=== PATIENT | female | born 1985 | race Two or more races ===

== ENCOUNTER 2019-05-28 22:20 | Inpatient (IN) | payer OTHER ==
[2019-05-28] MEDS ORDERED: RINGERS SOLUTION,LACTATED 1,000 ML IV PRN (22:46)
[2019-05-28] MEDS ORDERED: PENICILLIN G POTASSIUM 5,000,000 UNIT in DEXTROSE 5%-WATER 100 ML IV ONE (22:46)
[2019-05-28] MEDS ORDERED: PENICILLIN G-K 5 MILLION UNIT VIAL ONE (23:20)
[2019-05-28 23:22] LABS: APPEARANCE,URINE CLEAR; BILIRUBIN,URINE NEGATIVE (NEGATIVE); COLOR,URINE STRAW; GLUCOSE, URINE NEGATIVE (NEGATIVE); KETONES,URINE TRACE mg/dL (NEGATIVE); LEUKOCYTE ESTERASE,URINE NEGATIVE (NEGATIVE); NITRITE,URINE NEGATIVE (NEGATIVE); PROTEIN,URINE NEGATIVE (NEGATIVE); URINE SPECIFIC GRAVITY 1.004; UROBILINOGEN,URINE NEGATIVE mg/dL (<2.0)
[2019-05-28 23:22] LABS: ABSOLUTE EOSINOPHILS # (AUTO) 0.1 10^3/uL (0.0-0.6); ABSOLUTE LYMPHOCYTES (AUTO) 1.7 10^3/uL (0.5-4.7); ABSOLUTE MONOCYTES (AUTO) 0.4 10^3/uL (0.1-1.4); ABSOLUTE NEUT (AUTO) 4.5 10^3/uL (1.7-8.2); BASOPHILS % (AUTO) 0.6 % (0-2); EOSINOPHILS % (AUTO) 1.2 % (0-6); HEMATOCRIT 33.1 % (36.0-47.0); LYMPHOCYTES % (AUTO) 24.8 % (13-45); MEAN CORPUSCULAR HEMOGLOBIN 26.4 pg (27.0-33.4); MEAN CORPUSCULAR HGB CONC 33.2 g/dL (32.0-36.0); MEAN CORPUSCULAR VOLUME 79 fl (80-97); MONOCYTES % (AUTO) 6.1 % (3-13); PLATELET COUNT 246 10^3/uL (150-450); RED BLOOD COUNT 4.17 10^6/uL (3.72-5.28); RED CELL DISTRIBUTION WIDTH 26.1 % (11.5-14.0); SEGMENTED NEUTROPHILS % (AUTO) 67.3 % (42-78); TOTAL CELLS COUNTED % (AUTO) 100 %; WHITE BLOOD COUNT 6.7 10^3/uL (4.0-10.5)
[2019-05-28 23:47] LABS: URINE AMPHETAMINES SCREEN NEGATIVE; URINE BARBITURATES SCREEN NEGATIVE; URINE BENZODIAZEPINES SCREEN NEGATIVE; URINE COCAINE SCREEN NEGATIVE; URINE MARIJUANA (THC) SCREEN NEGATIVE; URINE METHADONE SCREEN NEGATIVE; URINE PHENCYCLIDINE SCREEN NEGATIVE
[2019-05-28 23:58] LABS: ANISOCYTOSIS 3+; OVALOCYTES 1+; PLATELET COMMENT ADEQUATE; POIKILOCYTOSIS 2+; TEAR DROP CELLS 1+; TOXIC GRANULATION SLIGHT
--- NOTE | 2019-05-29 00:53 | RADIOLOGY REPORT (SQ) ---
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 COMPARISON: None. TECHNIQUE: Grayscale, color Doppler, and spectral Doppler ultrasound images of the pelvis were obtained. FINDINGS: There is a single intrauterine gestation in vertex position. heart rate is 158 bpm. Placenta is posterior. AUBREY is 10.1 cm. Estimated weight is 3437 g which is 50th percentile. Estimated gestational age is 38 weeks 1 day. IMPRESSION: 38 weeks 1 day gestation.
[2019-05-29] MEDS ORDERED: LIDOCAINE 1% INJ-PF (10 MG/ML) 30 ML SDV ONE (01:39)
[2019-05-29] MEDS ORDERED: MISOPROSTOL 0.2 MG TABLET ONE (01:39)
[2019-05-29] MEDS ORDERED: OXYTOCIN/NORMAL SALINE 20 UNIT/1,000 ML RTUINJ ONE ×2 (01:39→17:08)
[2019-05-29] MEDS ORDERED: OXYTOCIN 10 UNIT/ML VIAL ONE ×2 (01:39→14:34)
[2019-05-29] MEDS ORDERED: PENICILLIN G-K 5 MILLION UNIT VIAL ONE ×2 (03:30→10:23)
--- NOTE | 2019-05-29 05:19 | Admission Physical ---
Datetime Report Generated by CPN: 05/29/2019 05:19 CURRENT ADMISSION Chief Complaint: Suspected Ruptured Membranes Indication for Induction: PROM Admit Impression : Term, Intrauterine ; No Active Labor; Ruptured Membranes; Admit Plan: Admit to Unit; Initiate Protocol ALLERGIES Medication Allergies: No Medication Allergies: No Known Allergies (05/29/2019) Latex: No Latex Allergies Food Allergies: denies Environmental Allergies: denies OBSTETRICAL HISTORY EDC: 06/01/2019 00:00 : 2 Para: 1 Term: 1 : 0 SAB: 0 IAB: 0 Livin Cesareans: 1 Gestational Diabetes: Yes Rh Sensitization: No Incompetent Cervix: No ALEA: No Infertility: No ART Treatment: No Uterine Anomaly: No IUGR: No Hx Previous C/S: Yes Macrosomia: No Hx Loss/Stillborn: No PIH: No Hx : No Placenta Previa/Abruption: No Depression/PP Depression: No PTL/PROM: No Post Hemorrhage: No Current Procedures: Ultrasound; NST Obstetrical History Comments: csection for breech g2-current, GDMA2 on glyburide SEE RECORDS Alcohol: No Marijuana : No Cocaine: No Other Illicit Drugs: No Cigarettes: Never Smoker. 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 Surgery: No Heart Disease: No Hosp/Surgery: Yes Autoimmune Disorder: No Anesthetic Complications: No Kidney Disease: No Abnormal Pap Smear: Yes Neuro/Epilepsy: No Psychiatric Disorders: No Other Medical Diseases: No Hepatitis/Liver Disease: No Significant Family History: No Varicosities/Phlebitis: No Trauma/Violence : No Thyroid Dysfunction: No Medical History Comments: csection x 1, GDM on glyburide, 2009 colpo, abnormal pap x 3 , tb positive skin test at age 13 did medications for 9 months but chest xray normal INFECTIOUS HISTORY Gonorrhea: No Genital Herpes: No Chlamydia: No Tuberculosis: Yes Syphilis: No Hepatitis: No HIV/AIDS Exposure: No Rash or Viral Illness: No HPV: No Infectious History Comments: positive skin test for TB but chest xray normal PHYSICAL EXAM General: Normal HEENT: Normal Neurologic: Normal Thyroid: Normal Heart: Normal Lungs: Normal Breast: Normal Back: Normal Abdomen: Normal Genitourinary Exam: Normal Extremities: Normal DTRs: Normal Pelvic Type: Adequate Vital Signs: Reviewed; Within Normal Limits VAGINAL EXAM Dilatation: 0 Effacement: 25 Station: -3 MEMBRANES Pooling: Positive Membranes: Ruptured Amniotic Fluid Color: Clear FETUS A EGA: 39.3 Monitoring: External US FHR- Baseline: 140 Variability: Moderate 6-25bpm Accelerations: 15X15 Decelerations: None FHR Category: Category I Estimated Weight (gm): 3437 Presentation: Vertex Admit Comment: EFW obtained due to concerns for LGA based on a 36 wk sono that estimated the baby at 8 lbs. I counseled the patient regarding her risks with since she has not had a vaginal before, and she did not come in with good cervical dilitation as well as concerns for possible LGA. When EFW was reassuring and pt did start to dilate some on her own, was reassured for at least a trial of labor. Emphasized low threshold for repeat c/section if labor did not progress in reassuring fashion PLANS FOR LABOR AND DELIVERY Labor and Delivery: None Pain Management: Medications; Epidural Feeding Preference: Breast Benefit of Breast Feed Discussed: Yes Circumcision: Yes INFORMED CONSENT Signature: with User ID: [email or web address]
[2019-05-29] MEDS ORDERED: EPHEDRINE SULFATE INJ 50 MG/1 ML AMPULE ONE ×2 (09:34→14:35)
[2019-05-29] MEDS ORDERED: BUPIVACAINE HCL 0.25 % INJ/PF (2.5 MG/1 ML) 30 ML VIAL ONE (09:35)
[2019-05-29] MEDS ORDERED: FENTANYL/BUPIVACAINE/NS/PF 300 MCG/150 ML RTUINJ EPI ONE (09:35)
[2019-05-29] MEDS ORDERED: CEFAZOLIN INJ 1 GM VIAL ONE (14:28)
[2019-05-29] MEDS ORDERED: CITRIC ACID/SODIUM CITRATE ORAL SOLN 15 ML UDCUP ONE (14:28)
[2019-05-29] MEDS ORDERED: DIPH/PERTUSS(ACELL)/TETANUS VAC/PF 0.5 ML SYR (>=10YO) IM PRN (14:33)
[2019-05-29] MEDS ORDERED: ACETAMINOPHEN 1,000 MG/100 ML RTUPB IV PRN (14:33)
[2019-05-29] MEDS ORDERED: ACETAMINOPHEN 325 MG TABLET PO PRN (14:33)
[2019-05-29] MEDS ORDERED: RINGERS SOLUTION,LACTATED 1,000 ML IV PRN (14:33)
[2019-05-29] MEDS ORDERED: HYDROMORPHONE HCL INJ/PF 2 MG/ML AMPULE IV PRN (14:33)
[2019-05-29] MEDS ORDERED: PROMETHAZINE HCL INJ 25 MG/1 ML VIAL IV PRN ×3 (14:33→15:11)
[2019-05-29] MEDS ORDERED: OXYCODONE-ACETAMINOPHEN 5-325 MG TABLET PO PRN ×3 (14:33→15:11)
[2019-05-29] MEDS ORDERED: OXYTOCIN/NORMAL SALINE 20 UNIT/1,000 ML RTUINJ IV PRN (14:33)
[2019-05-29] MEDS ORDERED: SIMETHICONE 80 MG TAB.CHEW PO PRN (14:33)
[2019-05-29] MEDS ORDERED: MEASLES,MUMPS&RUBELLA VACC/PF 0.5 ML VIAL SUBCUT PRN (14:33)
[2019-05-29] MEDS ORDERED: KETOROLAC TROMETHAMINE INJ/PF 30 MG/1 ML SDV ONE (14:34)
[2019-05-29] MEDS ORDERED: ACETAMINOPHEN 1,000 MG/100 ML RTUPB IV ONE (14:35)
[2019-05-29] MEDS ORDERED: MIDAZOLAM 2 MG/2 ML INJ ONE (14:35)
[2019-05-29] MEDS ORDERED: FENTANYL CITRATE INJ/PF 100 MCG/2 ML AMPUL ONE (14:35)
[2019-05-29] MEDS ORDERED: ONDANSETRON HCL INJ/PF 4 MG/2 ML SDV ONE (14:35)
[2019-05-29] MEDS ORDERED: METHYLERGONOVINE MALEATE INJ/PF 0.2 MG/1 ML AMPULE ONE (14:35)
[2019-05-29] MEDS ORDERED: LIDOCAINE 2% INJ-PF (20 MG/ML) 10 ML AMPUL ONE (14:36)
[2019-05-29] MEDS ORDERED: MORPHINE SULFATE 10 MG/ML INJ IV PRN (15:11)
[2019-05-29] MEDS ORDERED: ONDANSETRON HCL INJ/PF 4 MG/2 ML SDV IV PRN (15:11)
[2019-05-29] MEDS ORDERED: FENTANYL CITRATE INJ/PF 100 MCG/2 ML AMPUL IV PRN ×3 (15:11)
[2019-05-29] MEDS ORDERED: DIPHENHYDRAMINE HCL 50 MG/ML VIAL IV PRN (15:11)
--- NOTE | 2019-05-29 15:57 | Operative Report ---
Operative Report DATE OF SURGERY: 05/29/19 PREOPERATIVE DIAGNOSIS: Repeat along with heavy vaginal bleeding POSTOPERATIVE DIAGNOSIS: Same OPERATION: Repeat via low transverse uterine incision SURGEON: MARILYNN DANGELO ANESTHESIA: Epidural TISSUE REMOVED OR ALTERED: Placenta COMPLICATIONS: head delivering through peritoneal window at low uterine segment ESTIMATED BLOOD LOSS: 400 cc INTRAOPERATIVE FINDINGS: Viable . Normal tubes and ovaries PROCEDURE: Patient was taken to the OR and placed in supine position after her spinal anesthesia. She is prepared and draped in sterile fashion. Nolen was placed for drainage of the bladder. Low transverse incision was made and carried down the level of the fascia. The fascial incision was made with knife and extended bilaterally with curved Zeng scissors. The fascia was off the rectus muscles using sharp and blunt dissection. The rectus muscles are in the midline. The peritoneum was entered without incident. Bladder blade was placed in uterine segment was identified. The head was delivering through a peritoneal window in the low uterine segment. A low transverse incision was made creating a bladder flap. Bladder blade was placed low transverse uterine incision extended with fingertips. The baby was delivered with some fundal pressure. Mouth and nose were suctioned free. The cord is doubly clamped and cut. Baby is passed off to the residential program worker in attendance. The placenta was manually extracted with trailing membranes. The uterus was externalized wrapped in a moist lap sponge. Uterine contents wiped free. Uterus was closed with a running locking layer of 0 chromic suture using the second layer to imbricate the first completing a double layer closure of the uterus. The serosa was closed with a running 2-0 chromic stitch. The pelvis was irrigated and clemente ctioned free of fluid the uterus was replaced in the abdomen. The abdominal wall peritoneum was closed with running 2-0 chromic stitch. Fascia was closed with a running 0 Vicryl in 2 segments. Peter's layer was brought together with 0 plain gut stitch and the skin was closed with running subcuticular 4-0 undyed Vicryl stitch. The wound was dressed mother and baby did well.
[2019-05-29] MEDS ORDERED: MEPERIDINE HCL/PF INJ 25 MG/1 ML DISP.SYRIN ONE (16:08)
[2019-05-29] MEDS: MEPERIDINE HCL/PF INJ 25 MG/1 ML DISP.SYRIN IV PRN ×2 (16:13→17:42)
[2019-05-29] MEDS ORDERED: HYDROMORPHONE HCL INJ/PF 2 MG/ML AMPULE ONE (17:21)
--- NOTE | 2019-05-29 18:17 | Delivery Summary ---
Del Sum A-C Datetime Report Generated by CPN: 05/29/2019 18:16 DELIVERY PERSONNEL DELIVERY PERSONNEL: [id number] Delivery Doctor:: Linda Rey MD Anesthesiologist:: Alexis Locke MD APPRISE COUNSELOR:: Megan Lindsay CRNA Labor and Delivery Nurse:: Hazel Glez RN Wincher:: Edita Cervantes RN Artillery Maintenance Supervisor:: Dr. Brent Batista Nursery Nurse:: Nimo Emery RN Television Station Manager/MILKING SYSTEM INSTALLER: Miya Hoang CST Television Station Manager/MILKING SYSTEM INSTALLER: Beatriz Saldivar DIGITAL SOLUTIONS ARCHITECT MATERNAL INFORMATION Delivery Anesthesia: Spinal Medications After Delivery: Pitocin Bolus-Please Comment Meds After Delivery Comment: Pitocin 20 units IV bolus Delivery QBL: 630 Maternal Complications: None LABOR SUMMARY EDC: 06/01/2019 00:00 No. Babies in Womb: 1 Attempted: Yes Labor Anesthesia: Epidural LABOR INFORMATION Reason for Induction: Not Applicable Onset of Labor: 05/29/2019 07:30 Oxytocin: Augmentation Group B Beta Strep: positive Antibiotics # of Doses: 3 Antibiotics Time of Last Dose: 12:00 Name of Antibiotic Given: Penicillin G Steroids Given: None Reason Steroids Not Administered: Not Applicable MEMBRANES Membranes Rupture Method: Spontaneous Rupture of Membranes: 05/28/2019 21:30 Length of Rupture (hr): 17.73 Amniotic Fluid Color: Clear Amniotic Fluid Amount: Moderate Amniotic Fluid Odor: Normal STAGES OF LABOR Stage 3 hr: 0 Stage 3 min: 1 Total Time in Labor hr: 7 Total Time in Labor min: 45 VAGINAL DELIVERY Sponge Count Correct: N/A CSECTION DELIVERY Primary Indication: Secondary Arrest of Dilatation CSection Urgency: Non-Scheduled CSection Incidence: Repeat Labor: Labor Elective: Failed CSection Incision: Lower Uterine Transverse BABY A INFORMATION Infant Delivery Date/Time: 05/29/2019 15:14 Method of Delivery: Born in Route : No : Failed Forceps: N/A Vacuum Extraction: N/A Shoulder Dystocia : No PRESENTATION/POSITION BABY A Presentation: Cephalic Cephalic Presentation: Vertex Vertex Position: Left Occipital Anterior Breech Presentation: N/A PLACENTA INFORMATION BABY A Placenta Delivery Time : 05/29/2019 15:15 Placenta Method of Delivery: Manual Removal Placenta Status: Delivered SCORES BABY A Heart Rate 1 min: >100 bpm Resp Effort 1 min: Good Cry Reflex Irritability 1 min: Cough or Sneeze or Pulls Away Muscle Tone 1 min: Active Motion Color 1 min: Body Babbitt, Extremities Blue Resuscitation Effort 1 min: Tactile Stimulation SCORE 1 MIN: 9 Heart Rate 5 min: >100 bpm Resp Effort 5 min: Good Cry Reflex Irritability 5 min: Cough or Sneeze or Pulls Away Muscle Tone 5 min: Active Motion Color 5 min: Body Babbitt, Extremities Blue Resuscitation Effort 5 min: Tactile Stimulation SCORE 5 MIN: 9 INFORMATION BABY A Gestational Age at Delivery: 39.4 Gestational Status: Full Term- 39- 40.6 Weeks Outcome : Liveborn Condition : Stable Sex: Male IDENTIFICATION BABY A Infant Verification Date/Time: 05/29/2019 15:22 ID Band Number: [id number] Mother's Name Verified: Yes Infant RN Verifying Infant: Dilma Glez RN Additional Verifying Personnel: Shlomo CervantesEDILSON WEIGHT/LENGTH BABY A Birthweight (gm): 3410 Weight (lb): 7 Weight (oz): 8 Length (in): 21.00 Infant Length (cm): 53.34 CORD INFORMATION BABY A No. Cord Vessels: 3 Nuchal Cord : N/A Cord Blood Taken: Yes-For Storage (Mom's Blood type +) Infant Suction: None ASSESSMENT BABY A Complications: Multiple Late Decels Physical Findings at Delivery: Caput Succedaneum Infant Respirations: Appears Normal Skin to Skin: Yes Artillery Maintenance Supervisor/ALS Called : Yes Care By: Andrew Emery RN Transferred To: Nursery BABY B INFORMATION : N/A
[2019-05-29] MEDS: OXYCODONE-ACETAMINOPHEN 5-325 MG TABLET PO PRN (20:10)
[2019-05-29] MEDS: KETOROLAC TROMETHAMINE INJ/PF 30 MG/1 ML SDV IV SCH ×2 (20:58→21:46)
[2019-05-29] MEDS: DOCUSATE SODIUM 100 MG CAPSULE PO SCH (20:59)
[2019-05-29] MEDS: PENICILLIN G POTASSIUM 2,500,000 UNIT in DEXTROSE 5%-WATER 50 ML IV SCH (21:00)
[2019-05-30] MEDS: OXYCODONE-ACETAMINOPHEN 5-325 MG TABLET PO PRN (02:51)
[2019-05-30] MEDS: KETOROLAC TROMETHAMINE INJ/PF 30 MG/1 ML SDV IV SCH (05:42)
[2019-05-30 06:45] LABS: HEMATOCRIT 27.9 % (36.0-47.0); HEMOGLOBIN 9.3 g/dL (12.0-15.5); MEAN CORPUSCULAR HGB CONC 33.3 g/dL (32.0-36.0); MEAN CORPUSCULAR VOLUME 81 fl (80-97); PLATELET COUNT 211 10^3/uL (150-450); RED BLOOD COUNT 3.45 10^6/uL (3.72-5.28); RED CELL DISTRIBUTION WIDTH 26.8 % (11.5-14.0)
[2019-05-30 07:08] LABS: HEPATITS B SURFACE ANTIGEN Negative (Negative)
[2019-05-30] MEDS: DOCUSATE SODIUM 100 MG CAPSULE PO SCH ×2 (09:35→18:06)
[2019-05-30] MEDS ORDERED: PRENATAL VITAMIN W DHA CAPSULE PO SCH (10:00)
[2019-05-30] MEDS: IBUPROFEN 800 MG TABLET PO SCH ×2 (11:35→18:05)
--- NOTE | 2019-05-30 12:59 | PDOC PROGRESS REPORT ---
Subjective-OB Progress Note for:: 05/30/19 Subjective: reports bleeding slowing, pain controlled with current meds, denies needs, + passing gas Physical Exam (OB) Vital Signs: Temp Pulse Resp BP Pulse Ox 98.4 F 90 16 99/57 L 99 05/30/19 11:53 05/30/19 11:53 05/30/19 11:53 05/30/19 11:53 05/30/19 11:53 Intake & Output 05/29/19 05/30/19 05/31/19 06:59 06:59 06:59 Intake Total 150 Output Total 2400 Balance -2250 Weight 75.45 kg - Dressing Removed: No Incision: Dressing, Well Approximated Closure Type: op site - Abdomen Description: Tender, Soft, Round Hernia Present: No Fundal Description: Firm, Midline Fundal Height: u/u - u/2 - Abdominal Distension: No distension - Extremities Lower extremities: Jelly's sign - neg Calf: Nontender Objective-Diagnostic Laboratory: 05/30/19 06:08 05/30/19 06:08 WBC 8.0 RBC 3.45 L Hgb 9.3 L Hct 27.9 L MCV 81 MCH 27.0 MCHC 33.3 RDW 26.8 H Plt Count 211 Assessment and Plan(PN) - Time Spent with Patient Time with patient: Less than 15 minutes - Disposition Anticipated Discharge: Home Within: within 48 hours
--- NOTE | 2019-05-30 20:23 | PDOC DISCHARGE SUMMARY ---
Impression - Admit/DC Date/PCP Admission Date/Primary Care Provider: 05/28/19 22:46 Discharge Date: 05/30/19 - Discharge Diagnosis (1) Encounter for trial of labor Is this a current diagnosis for this admission?: Yes (2) History of delivery Is this a current diagnosis for this admission?: Yes (3) PROM (premature rupture of membranes) Is this a current diagnosis for this admission?: Yes - Additional Information Resuscitation Status: Full Code Discharge Diet: As Tolerated Discharge Activity: No Lifting Over 10 Pounds, Pelvic Rest, No tub bath Home Medications: Ferrous Sulfate [Iron] 1 tab PO DAILY 05/29/19 Glyburide [Diabeta 5 mg Tablet] 1 tab PO HSP 05/29/19 Vitamin [-U Multiple Vitamin Capsule] 1 tab PO DAILY 05/29/19 History of Present Illiness History of Present Illness: HOLLY HERNÁNDEZ is a 34 year old presented to [facility] for a scheduled trial of labor. Her induction resulted in a failed vaginal after delivery and she underwent a repeat section Hospital Course Hospital Course: Hospital course was essentially uneventful by postop day #1, the patient was ambulating voiding without difficulty. Patient stated that her lochia was decreasing. Patient denied chest pain, shortness of breath, fever/chills and nausea/vomiting. She requested to be discharged home. She stated that she went home on postop day 1 after her previous section. Physical Exam - Physical Exam Vital Signs: Temp Pulse Resp BP Pulse Ox 98.1 F 92 18 116/57 L 100 05/30/19 15:01 05/30/19 15:01 05/30/19 15:01 05/30/19 15:01 05/30/19 15:01 Intake & Output 05/29/19 05/30/19 05/31/19 06:59 06:59 06:59 Intake Total 150 Output Total 2400 Balance -2250 Weight 75.45 kg General appearance: PRESENT: no acute distress Respiratory exam: PRESENT: clear to auscultation callie Cardiovascular exam: PRESENT: RRR GI/Abdominal exam: PRESENT: normal bowel sounds, soft Extremities exam: ABSENT: calf tenderness, clubbing, full ROM, joint swelling, pedal edema, tenderness, +1 edema, +2 edema, other Results Laboratory Results: WBC 8.0 10^3/uL (4.0-10.5) 05/30/19 06:08 RBC 3.45 10^6/uL (3.72-5.28) L 05/30/19 06:08 Hgb 9.3 g/dL (12.0-15.5) L 05/30/19 06:08 Hct 27.9 % (36.0-47.0) L 05/30/19 06:08 MCV 81 fl (80-97) 05/30/19 06:08 MCH 27.0 pg (27.0-33.4) 05/30/19 06:08 MCHC 33.3 g/dL (32.0-36.0) 05/30/19 06:08 RDW 26.8 % (11.5-14.0) H 05/30/19 06:08 Plt Count 211 10^3/uL (150-450) 05/30/19 06:08 Lymph % (Auto) 24.8 % (13-45) 05/28/19 23:08 Sawyer % (Auto) 6.1 % (3-13) 05/28/19 23:08 Eos % (Auto) 1.2 % (0-6) 05/28/19 23:08 Baso % (Auto) 0.6 % (0-2) 05/28/19 23:08 Absolute Neuts (auto) 4.5 10^3/uL (1.7-8.2) 05/28/19 23:08 Absolute Lymphs (auto) 1.7 10^3/uL (0.5-4.7) 05/28/19 23:08 Absolute Monos (auto) 0.4 10^3/uL (0.1-1.4) 05/28/19 23:08 Absolute Eos (auto) 0.1 10^3/uL (0.0-0.6) 05/28/19 23:08 Absolute Basos (auto) 0.0 10^3/uL (0.0-0.2) 05/28/19 23:08 Seg Neutrophils % 67.3 % (42-78) 05/28/19 23:08 Toxic Granulation SLIGHT 05/28/19 23:08 Platelet Comment ADEQUATE 05/28/19 23:08 Poikilocytosis 2+ 05/28/19 23:08 Anisocytosis 3+ 05/28/19 23:08 Microcytosis SLIGHT 05/28/19 23:08 Tear Drop Cells 1+ 05/28/19 23:08 Ovalocytes 1+ 05/28/19 23:08 POC Glucose 99 mg/dL (70-110) 05/29/19 01:01 Urine Color STRAW 05/28/19 22:27 Urine Appearance CLEAR 05/28/19 22:27 Urine pH 7.0 (5.0-9.0) 05/28/19 22:27 Ur Specific Valier 1.004 05/28/19 22:27 Urine Protein NEGATIVE mg/dL (NEGATIVE) 05/28/19 22:27 Urine Glucose (UA) NEGATIVE mg/dL (NEGATIVE) 05/28/19 22:27 Urine Ketones TRACE mg/dL (NEGATIVE) H 05/28/19 22:27 Urine Blood MODERATE (NEGATIVE) H 05/28/19 22:27 Urine Nitrite NEGATIVE (NEGATIVE) 05/28/19 22:27 Urine Bilirubin NEGATIVE (NEGATIVE) 05/28/19 22:27 Urine Urobilinogen NEGATIVE mg/dL (<2.0) 05/28/19 22:27 Ur Leukocyte Esterase NEGATIVE (NEGATIVE) 05/28/19 22:27 Urine Ascorbic Acid NEGATIVE (NEGATIVE) 05/28/19 22:27 Urine Opiates Screen NEGATIVE 05/28/19 22:27 Urine Methadone Screen NEGATIVE 05/28/19 22:27 Ur Barbiturates Screen NEGATIVE 05/28/19 22:27 Ur Phencyclidine Scrn NEGATIVE 05/28/19 22:27 Ur Amphetamines Screen NEGATIVE 05/28/19 22:27 U Benzodiazepines Scrn NEGATIVE 05/28/19 22:27 Urine Cocaine Screen NEGATIVE 05/28/19 22:27 U Marijuana (THC) Screen NEGATIVE 05/28/19 22:27 RPR NONREACTIVE (NONREACTIVE) 05/28/19 23:08 Hep Bs Antigen Negative (Negative) 05/28/19 23:08 Rubella IgG Antibody 40.80 IU/mL 05/29/19 04:52 Rubella IgG Ab Interp POSITIVE 05/29/19 04:52 Blood Type A POSITIVE 05/28/19 23:08 Antibody Screen NEGATIVE 05/28/19 23:08 Impressions: Obstetrics Ultrasound 05/28/19 23:06 IMPRESSION: 38 weeks 1 day gestation. Plan Plan of Treatment: 1. Discharge home 2. Follow up in the office in 1 week for an incision check 3. Rx Percocet and ibuprofen Stroke Is this a Stroke Patient?: No Acute Heart Failure - Is this a Heart Failure Patient?: No
[2019-05-30 21:40] VITALS: BP 118/66
== END 2019-05-30 22:01 | disposition home or self-care (01) | DRG 788 ==
LOC: LC 22:20 → LR 22:46 → 2S 05-29 16:30
PROVIDERS: ADMIT Obstetrics & Gynecology; ATTEND Obstetrics & Gynecology
PROC: 10D00Z1 Extraction of Products of Conception, Low, Open Approach (ICD-10-PCS; principal; 2019-05-29)
DX: O42.92 Full-term premature rupture of membranes, unspecified as to length of time between rupture and onset of labor (principal); O34.211 Maternal care for low transverse scar from previous cesarean delivery; O62.1 Secondary uterine inertia; O24.425 Gestational diabetes mellitus in childbirth, controlled by oral hypoglycemic drugs; O76 Abnormality in fetal heart rate and rhythm complicating labor and delivery; O34.593 Maternal care for other abnormalities of gravid uterus, third trimester; Z3A.39 39 weeks gestation of pregnancy; Z37.0 Single live birth
CPT/HCPCS: 1961; 36415; 76815; 80307; 81005; 82962; 85025; 85027; 86592; 86762; 86850; 86900; 86901; 87340; 94760; 94799; J0131; J0690; J1170; J1885; J2175; J2210; J2250; J2405; J2540; J2590; J3010; J3490